=== PATIENT | female | born 1970 | race Caucasian/White ===

== ENCOUNTER 2016-08-29 10:29 | Emergency (ER) | payer OTHER ==
[2016-08-29 10:36] VITALS: BP 139/88
== END 2016-08-29 12:00 | disposition home or self-care (01) ==
LOC: ED 10:29
DX: S30.0XXA Contusion of lower back and pelvis, initial encounter (principal); S60.211A Contusion of right wrist, initial encounter; W17.89XA Other fall from one level to another, initial encounter; Y93.89 Activity, other specified; Y99.8 Other external cause status; Y92.89 Other specified places as the place of occurrence of the external cause